=== PATIENT | female | born 1950 | race African-American/Black ===

== ENCOUNTER 2018-09-04 07:05 | Emergency (ER) | payer MEDICARE ==
[~2018-09-04] VITALS: Ht 175.3 cm; Wt 101.0 kg
[2018-09-04] MEDS ORDERED: IPRATROPIUM BROMIDE (0.02%) 0.5MG/2.5ML NEB HHN STA (07:18)
[2018-09-04] MEDS ORDERED: ALBUTEROL (0.083%) 2.5MG/3ML NEB HHN STA (07:18)
[2018-09-04] MEDS ORDERED: IPRATROPIUM/ALBUTEROL 0.5-3(2.5)MG/3ML NEB ONE (07:37)
[2018-09-04] MEDS ORDERED: LEVOFLOXACIN 500MG TABLET PO ONE (09:00)
[2018-09-04 09:36] VITALS: BP 123/71
== END 2018-09-04 09:38 | disposition home or self-care (01) ==
LOC: ER 07:05
DX: J18.9 Pneumonia, unspecified organism (principal); I10 Essential (primary) hypertension; J45.909 Unspecified asthma, uncomplicated; E11.9 Type 2 diabetes mellitus without complications; Z88.0 Allergy status to penicillin; Z88.1 Allergy status to other antibiotic agents
CPT/HCPCS: 71045; 94640; 99283; J7611; J7620

== ENCOUNTER 2018-09-15 02:17 | Inpatient (IN) | payer MEDICARE, MEDICAID ==
[~2018-09-15] VITALS: Ht 175.3 cm; Wt 99.4 kg
[2018-09-15] MEDS ORDERED: ASPIRIN 81MG TABLET PO ONE (05:00)
[2018-09-15] MEDS ORDERED: NITROGLYCERIN OINT 1GM/INCH UDPKT TD ONE (05:00)
[2018-09-15 05:05] LABS: HEMATOCRIT. 37.3 % (36.0-48.0); HEMOGLOBIN. 12.5 g/dL (12.0-16.0); MEAN CORPUSCULAR HEMOGLOBIN 30.6 pg (28.0-32.0); MEAN CORPUSCULAR VOLUME 91.1 fL (81.0-99.0); PLATELET 307 x1000/uL (130-400); RED BLOOD CELL COUNT 4.09 mill/uL (4.2-5.4); RED CELL DISTRIBUTION WIDTH 13.3 % (11.6-14.6)
[2018-09-15 05:06] LABS: BASOPHILS % 1.1 % (0.0-2.0); EOSINOPHILS % 4.1 % (0.0-5.0); LYMPHOCYTES % 46.4 % (20.0-50.0); MONOCYTES % 8.6 % (2.0-8.0); NEUTROPHILS % 39.8 % (40.0-76.0)
[2018-09-15 05:09] LABS: CHLORIDE 103 mEq/L (98-107)
[2018-09-15 21:00] VITALS: BP 119/71
[2018-09-15] MEDS ORDERED: INSU100V3 SUBCUT (21:25)
[2018-09-15] MEDS ORDERED: BECL10.62 IH (21:25)
[2018-09-15] MEDS ORDERED: ALBU90AE INH (21:25)
[2018-09-15] MEDS ORDERED: METF-816 PO (21:25)
[2018-09-15] MEDS ORDERED: ATEN50TA PO (21:25)
[2018-09-15] MEDS ORDERED: DEXTROSE 50% WATER 50ML SYRINGE IV PRN (22:30)
[2018-09-15] MEDS ORDERED: IPRATROPIUM/ALBUTEROL 0.5-3(2.5)MG/3ML NEB HHN PRN (22:30)
[2018-09-15] MEDS ORDERED: ACETAMINOPHEN 325MG TABLET PO PRN (22:30)
[2018-09-15] MEDS: INSULIN LISPRO 100 UNITS/ML SUBCUT SCH (22:38)
[2018-09-15] MEDS: BLOOD SUGAR DIAGNOSTIC STRIP TEST SCH (22:44)
[2018-09-16] VITALS: BP 100/66
[2018-09-16 00:31] LABS: CREATINE KINASE 44 IU/L (26-192)
[2018-09-16 00:32] LABS: CREATINE KINASE MB FRACTION < 1.0 ng/mL (0.5-3.6)
[2018-09-16 04:00] VITALS: BP 103/60
[2018-09-16] MEDS: BLOOD SUGAR DIAGNOSTIC STRIP TEST SCH ×3 (06:32→16:54)
[2018-09-16] MEDS: INSULIN LISPRO 100 UNITS/ML SUBCUT SCH ×3 (06:33→16:55)
[2018-09-16] MEDS ORDERED: PANTOPRAZOLE 40MG DR TABLET PO SCH (07:10)
[2018-09-16 08:00] VITALS: BP 125/83
[2018-09-16] MEDS ORDERED: ATENOLOL 50 MG TABLET PO SCH (09:00)
[2018-09-16] MEDS ORDERED: ASPIRIN 81MG TABLET PO SCH (09:00)
[2018-09-16 09:05] LABS: HEMATOCRIT 34.8 % (36.0-48.0); HEMOGLOBIN 11.5 g/dL (12.0-16.0); MEAN CORPUSCULAR HEMOGLOBIN 29.8 pg (28.0-32.0); MEAN CORPUSCULAR VOLUME 90.6 fL (81.0-99.0); PLATELET 289 x1000/uL (130-400); RED BLOOD CELL COUNT 3.84 mill/uL (4.2-5.4); RED CELL DISTRIBUTION WIDTH 12.9 % (11.6-14.6)
[2018-09-16 09:22] LABS: CHLORIDE 103 mEq/L (98-107)
[2018-09-16 09:34] LABS: CREATINE KINASE 38 IU/L (26-192); LDL CHOLESTEROL 88 mg/dL (5-100)
[2018-09-16 09:35] LABS: HDL CHOLESTEROL 42 mg/dL (40-59)
[2018-09-16 09:39] LABS: CREATINE KINASE MB FRACTION < 1.0 ng/mL (0.5-3.6)
[2018-09-16 11:37] VITALS: BP 103/64
[2018-09-16] MEDS ORDERED: INFLUENZA VIRUS VACCINE(AFLURIA) 0.5ML SYR IM ONE (12:00)
[2018-09-16] MEDS ORDERED: PNEUMOCOCCAL 23-VAL P-SAC VAC 0.5 ML IM ONE (12:00)
[2018-09-16] MEDS: INSULIN GLARGINE UD 100 UNITS/ML SYR SUBCUT NR ×2 (14:30→15:56)
[2018-09-16 15:31] LABS: CREATINE KINASE 40 IU/L (26-192)
[2018-09-16 15:33] LABS: CREATINE KINASE MB FRACTION < 1.0 ng/mL (0.5-3.6)
[2018-09-16 15:37] VITALS: BP 109/77
[2018-09-16 18:11] VITALS: BP 112/72
== END 2018-09-16 19:05 | disposition home or self-care (01) | DRG 313 ==
LOC: ER 02:17 → 8WST 05:33 → EDBEDREQTM 05:37 → EDBEDREQ 05:37 → ENRESERV 19:38
PROVIDERS: ADMIT Internal Medicine; ATTEND Internal Medicine
DX: R07.89 Other chest pain (principal); R05 Cough; E11.9 Type 2 diabetes mellitus without complications; I10 Essential (primary) hypertension; J45.909 Unspecified asthma, uncomplicated; E66.9 Obesity, unspecified; Z59.0 Homelessness; Z87.01 Personal history of pneumonia (recurrent); Z68.32 Body mass index [BMI] 32.0-32.9, adult; Z88.1 Allergy status to other antibiotic agents; Z88.0 Allergy status to penicillin; Z88.8 Allergy status to other drugs, medicaments and biological substances; Z79.899 Other long term (current) drug therapy; Z79.4 Long term (current) use of insulin; Z90.49 Acquired absence of other specified parts of digestive tract; Z23 Encounter for immunization
CPT/HCPCS: 36415; 71045; 80048; 80061; 82550; 82553; 82962; 83880; 84484; 85027; 90686; 90732; 93005; 93970; 96374; 99285; J1815

== ENCOUNTER 2018-10-19 23:27 | Inpatient (IN) | payer MEDICARE, MEDICAID ==
[~2018-10-19] VITALS: Ht 175.3 cm; Wt 102.7 kg
[~2018-10-19 23:27] MED LIST: ALBU90AE INH; ATEN50TA PO; BECL10.62 IH; INSU100V3 SUBCUT; METF-816 PO
[2018-10-20 08:23] LABS: BASOPHILS % 1.3 % (0.0-2.0); EOSINOPHILS % 5.9 % (0.0-5.0); HEMATOCRIT. 38.5 % (36.0-48.0); HEMOGLOBIN. 12.7 g/dL (12.0-16.0); MEAN CORPUSCULAR VOLUME 90.9 fL (81.0-99.0); MONOCYTES % 6.9 % (2.0-8.0); NEUTROPHILS % 31.9 % (40.0-76.0); PLATELET 239 x1000/uL (130-400); RED BLOOD CELL COUNT 4.23 mill/uL (4.2-5.4); RED CELL DISTRIBUTION WIDTH 13.7 % (11.6-14.6)
[2018-10-20 08:29] LABS: CHLORIDE 103 mEq/L (98-107)
[2018-10-20 08:48] LABS: CLARITY URINE CLOUDY (CLEAR); COLOR URINE YELLOW (YELLOW); KETONES URINE NEGATIVE (NEGATIVE); LEUKOCYTE ESTERASE URINE 3+ (NEGATIVE); NITRITE URINE NEGATIVE (NEGATIVE); OCCULT BLOOD URINE NEGATIVE (NEGATIVE); PH URINE 5.5 (4.5-8.0); PROTEIN URINE NEGATIVE (NEGATIVE); SPECIFIC GRAVITY URINE 1.022 (1.005-1.030); UROBILINOGEN URINE 0.2 E.U./dL (0.2-1.0)
[2018-10-20] MEDS ORDERED: NITROFURANTOIN 100MG M/M CAPSULE PO ONE (10:30)
[2018-10-20] MEDS ORDERED: SODIUM CHLORIDE 0.45% 1,000 ML IV SCH (12:00)
[2018-10-20] MEDS ORDERED: DEXTROSE 50% WATER 50ML SYRINGE IV PRN (12:00)
[2018-10-20] MEDS ORDERED: IPRATROPIUM/ALBUTEROL 0.5-3(2.5)MG/3ML NEB HHN PRN (12:15)
[2018-10-20 16:00] VITALS: BP 145/87
[2018-10-20] MEDS ORDERED: FLUCONAZOLE 150MG TABLET PO NR (17:00)
[2018-10-20] MEDS ORDERED: OMEG100016 MT (17:37)
[2018-10-20] MEDS: BLOOD SUGAR DIAGNOSTIC STRIP TEST SCH ×2 (18:19→21:00)
[2018-10-20] MEDS: INSULIN LISPRO 100 UNITS/ML SUBCUT SCH ×2 (18:27→21:52)
[2018-10-20 20:19] VITALS: BP 108/69
[2018-10-20 20:20] VITALS: BP_SYST 127; BP_SYST 129; BP_DIAS 68; BP_DIAS 83
[2018-10-20] MEDS: SULFAMETHOXAZOLE/TRIMETHOPRIM 800/160MG TABLET PO SCH (21:51)
[2018-10-21 00:33] VITALS: BP 124/67
[2018-10-21 04:33] VITALS: BP 117/65
[2018-10-21] MEDS: BLOOD SUGAR DIAGNOSTIC STRIP TEST SCH (07:57)
[2018-10-21 07:58] VITALS: BP 123/73
[2018-10-21 07:59] VITALS: BP 129/77
[2018-10-21] MEDS: SULFAMETHOXAZOLE/TRIMETHOPRIM 800/160MG TABLET PO SCH (09:01)
[2018-10-21] MEDS: INSULIN LISPRO 100 UNITS/ML SUBCUT SCH (09:09)
[2018-10-21 11:03] LABS: HEMATOCRIT 37.3 % (36.0-48.0); HEMOGLOBIN 12.4 g/dL (12.0-16.0); MEAN CORPUSCULAR VOLUME 90.2 fL (81.0-99.0); PLATELET 233 x1000/uL (130-400); RED BLOOD CELL COUNT 4.13 mill/uL (4.2-5.4); RED CELL DISTRIBUTION WIDTH 13.8 % (11.6-14.6)
[2018-10-21 11:20] LABS: CHLORIDE 103 mEq/L (98-107)
[2018-10-21 12:00] VITALS: BP 140/82
[2018-10-21 13:22] VITALS: BP 127/73
== END 2018-10-21 13:55 | disposition home or self-care (01) | DRG 74 ==
LOC: ER 23:27 → 6WST 10-20 10:40 → ENRESERV 10-20 14:09
PROVIDERS: ADMIT Internal Medicine; ATTEND Internal Medicine
DX: G90.8 Other disorders of autonomic nervous system (principal); N39.0 Urinary tract infection, site not specified; I95.1 Orthostatic hypotension; N76.0 Acute vaginitis; E78.5 Hyperlipidemia, unspecified; E11.65 Type 2 diabetes mellitus with hyperglycemia; I10 Essential (primary) hypertension; R00.1 Bradycardia, unspecified; Z88.1 Allergy status to other antibiotic agents; Z88.0 Allergy status to penicillin; Z88.8 Allergy status to other drugs, medicaments and biological substances; Z79.84 Long term (current) use of oral hypoglycemic drugs; Z79.4 Long term (current) use of insulin; Z79.899 Other long term (current) drug therapy; Z90.49 Acquired absence of other specified parts of digestive tract
CPT/HCPCS: 36415; 71045; 80048; 82962; 83036; 83880; 84484; 85027; 87210; 93005; 93306; 93880; 97161; 99285; J1815